=== PATIENT | male | born 1980 | race African-American/Black ===

== ENCOUNTER 2019-09-14 02:02 | Emergency (ER) | payer SELFPAY ==
[~2019-09-14] VITALS: Ht 177.8 cm; Wt 72.6 kg
[~2019-09-14 02:02] MED LIST: HUMALOG100 UNITS/; LANTUS100 UNITS/
[2019-09-14] MEDS ORDERED: DEXTROSE 50% SYRINGE 50 ML IV STA (02:03)
--- OUTSIDE RECORDS SUMMARY | 2019-09-14 02:05 | XMS REPORT ---
Author Author [facility] Address Unknown Phone Unavailable Care Team Providers Care Health Outreach Worker Name Role Phone Unavailable Unavailable Problems This patient has no known problems. Allergies, Adverse Reactions, Alerts This patient has no known allergies or adverse reactions. Medications This patient has no known medications.
[2019-09-14] MEDS ORDERED: DEXTROSE 50% SYRINGE 50 ML IV ONE (02:09)
--- NOTE | 2019-09-14 02:15 | NUR ---
ON ARRIVAL PT HAS DEXTROSE 5% 250MLS RUNNING IN IV FROM EMS - ER MD RODRIGUEZ TO FINISH BAG OF DEXTROSE 5% AT 150MLS/HR
== END 2019-09-14 02:42 | disposition left against medical advice (07) ==
LOC: ER 02:02
DX: E10.649 Type 1 diabetes mellitus with hypoglycemia without coma (principal)
CPT/HCPCS: 36415; 82948; 99283; J7799